=== PATIENT | male | born 1965 | race Asian ===

== ENCOUNTER 2018-09-12 17:55 | Emergency (ER) | payer OTHER ==
[2018-09-12] MEDS ORDERED: DEXAMETHASONE 10 MG/ML VIAL PO STA (20:27)
[2018-09-12] MEDS ORDERED: KETOROLAC 60 MG/2 ML VIAL IM STA (20:27)
--- NOTE | 2018-09-12 20:31 | ED Physician Documentation ---
History of Present Illness - Stated complaint Stated Complaint: R SIDE NECK/FLANK/ ARM PX - Chief complaint Chief Complaint: Ext Problem - History obtained from History obtained from: Patient, Family () - History of Present Illness Timing: How many weeks ago (2) Pain level max: 7 Pain level now: 4 Improved by: tylenol, massage Worsened by: movement - Additonal information Additional information: 53 year old male with R sided neck pain, radiating to the R arm and R flank. Intermittent for 2 weeks. Feels like shooting pain. Worse with turning his neck, especially trying to look over the R shoulder when backing out his car. Has a history of similar problems in the past with his neck per pt and . No recent trauma. No focal numbness or weakness. No difficulty with speech. No headache. Occasionally feels the pain radiated into the right upper ribs as well. Has been taking Tylenol which relieves the pain as well as massaging the trapezius and neck muscles which also relieves the pain. Review of Systems Constitutional: denies: Fever, Chills Ears: denies: Ear pain Nose: denies: Rhinorrhea / runny nose, Congestion Respiratory: denies: Cough GI: denies: Abdominal Pain, Nausea, Vomiting, Diarrhea Skin: denies: Rash Musculoskeletal: denies: Neck pain, Back pain Neurologic: denies: Focal weakness, Numbness, Headache PD PAST MEDICAL HISTORY - Past Medical History Cardiovascular: Hypertension, High cholesterol Endocrine/Autoimmune: Type 2 diabetes - Present Medications Home Medications: Ambulatory Orders Medication Instructions Recorded Confirmed Aspirin [Aspir 81] 81 mg PO DAILY 06/22/15 09/12/18 Losartan Potassium 25 mg PO DAILY 06/22/15 09/12/18 Atorvastatin Calcium 40 mg PO DAILY 09/12/18 09/12/18 Cyclobenzaprine [Flexeril] 10 mg PO TID PRN #20 tablet 09/12/18 Meloxicam [Mobic] 15 mg PO DAILY PRN #20 tablet 09/12/18 Metformin HCl [Metformin ER 500 mg PO DAILY 09/12/18 09/12/18 Osmotic] Sitagliptin Phosphate [Januvia] 50 mg PO DAILY 09/12/18 09/12/18 - Allergies Allergies/Adverse Reactions: Allergies Allergy/AdvReac Type Severity Reaction Status Date / Time No Known Drug Allergies Allergy Verified 09/12/18 18:05 - Social History Does the pt smoke?: No Smoking Status: Never smoker PD ED PE NORMAL - Vitals Vital signs reviewed: Yes - General General: Alert and oriented X 3, No acute distress, Well developed/nourished - HEENT HEENT: Atraumatic, PERRL, Ears normal, Moist mucous membranes, Pharynx benign - Neck Neck: Supple, no meningeal sign, No bony TTP, Other (Paraspinal cervical spasm right sided. 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 Given Toradol and Decadron here. Will place on Mobic and Flexeril for home. We will have him follow-up with his doctor for further care. He is well-appearing, nontoxic. Afebrile. No evidence of cauda equina, epidural abscess. No evidence of stroke. Patient counseled regarding signs and symptoms for which I believe and urgent re-evaluation would be necessary. Patient with good understanding of and agreement to plan and is comfortable going home at this time This document was made in part using voice recognition software. While efforts are made to proofread this document, sound alike and grammatical errors may occur. Departure - Departure Disposition: 01 Home, Self Care Clinical Impression: Cervical radiculopathy Condition: Good Instructions: ED Cervical Radiculopathy Follow-Up: NAE GUO [Primary Care Provider] - Within 1 week Prescriptions: Cyclobenzaprine [Flexeril] 10 mg PO TID PRN #20 tablet PRN Reason: Spasms Meloxicam [Mobic] 15 mg PO DAILY PRN #20 tablet PRN Reason: pain Comments: Do not drive or operate heavy machinery while taking the Flexeril. This should improve over the next few days. Follow-up with your doctor for further care. You may need physical therapy and/or an MRI. NIHSS - Time Time: 08:24 - Level of Consciousness Level of consciousness: (0) Alert, Keenly responsive LOC Questions: (0) Answers both Q's correct LOC Commands: (0) Performs both correctly - Gaze Best Gaze: (0) Normal - Visual Visual: (0) No loss - Facial Palsy Facial Palsy: (0) Normal, symmetrical movement - Motor Arms (both separate) Motor Arm (right): (0) No drift Motor Arm (left): (0) No drift - Motor Legs (both separate) Motor Leg (right): (0) No drift Motor Leg (left): (0) No drift - Limb Ataxia Limb Ataxia: (0) Absent - Sensory Sensory: (0) Normal - Best Language Best Language: (0) No aphasia - Dysarthria Dysarthria: (0) Normal - Extinction and Inattention (formally neg Extinction and inattention: (0) No abnormality - Total Score/Results Total Score/Result: 0
[2018-09-12 20:59] VITALS: BP 128/70
== END 2018-09-12 20:59 | disposition home or self-care (01) ==
LOC: ED 17:55
DX: M54.12 Radiculopathy, cervical region (principal); E11.9 Type 2 diabetes mellitus without complications; I10 Essential (primary) hypertension; E78.00 Pure hypercholesterolemia, unspecified; Z79.82 Long term (current) use of aspirin
CPT/HCPCS: 96372; 99283

== ENCOUNTER 2020-10-17 15:40 | Outpatient (CLI) | payer OTHER ==
[2020-10-17 16:19] VITALS: BP 153/90
--- NOTE | 2020-10-17 16:19 | SLEEP CARE CONSULTATION ---
Information from patient questionnaire entered by Rosalba Boothe. I have reviewed and concur with the information entered by Rosalba Boothe. This document represents the service I personally performed and the decisions made by me, Alesha Hood MD, [facility]. History of Present Illness Service Date and Time: 10/17/2020 1540 Reason for Visit: New patient, Previously diagnosed sleep apnea Chief Complaint: reports: Unrefreshed sleep, Snoring, Other (changed of sleep habits) Date of Onset: more than 6 months Usual bedtime: 10pm Time it takes to fall asleep: 6 hours Snores at night: Yes Observed to quit breathing while asleep: Yes Sleeps alone due to snoring: No Number of times waking at night: 2-3 times Reasons for waking at night: reports: Snoring, Bathroom Toss, Turn, or Twitch while sleeping: Yes Recalls having dreams: Yes Usually gets out of bed at: 5 am Feels refreshed in the morning: Yes (sometimes) Morning headache: Yes (dizzyness) Sleepy or fatigued during the day: Yes Ever fallen asleep while driving: Yes Takes day naps: Yes (if time permits) Dreams during day naps: Yes Prior sleep studies: Yes Year and Where: 2012 - [facility] in [facility] Additional HPI information: I had the pleasure of seeing Mr. Gr along with his today regarding obstructive sleep apnea-hypopnea. As you know, he is a 55 year old gentleman who was diagnosed with the sleep-disordered breathing in [place] 8 years ago. The AHI was 3.9. He was prescribed a CPAP device which he found very uncomfortable and did not use it. He continues to snore loudly and his reports seeing him quit breathing. He is very sleepy during the day. - Parasomnia Symptoms Ever been unable to move upon waking from sleep: Yes Ever felt weak in the knees when startled or emotional: Yes Bothered by creepy, crawly, restless sensations in legs: Yes Problems with memory or concentration: Yes (lately) Subjective Initial [place] Sleepiness Scale score: 24 (in 2020) Past Medical History Past Medical History: reports: Diabetes, Anxiety, Depression, Other (dryness of eyes, twitching of eyes) Social History The patient's occupation is a [employer]. Patient is and lives in [place]. Have you smoked in the past 12 months: No Alcohol use: No Caffeine use: Yes Caffeine amount and frequency: 2 cups of coffee a day Family History Family history of sleep disordered breathing: Yes (dad, mom) Allergies and Home Medications Drug allergies reviewed: Yes Home medication list reviewed: Yes Review of Systems Weight loss over past 5 years: 15 Cardiovascular: reports: high blood pressure Respiratory: reports: other (asthma) Gastrointestinal: reports: difficulty swallowing Urinary: reports: frequency Neurological: denies: headaches, seizure, head trauma, disorientation, speech dysfunction, gait or balance problems, fainting or unconsciousness, other Psychiatric: reports: anxiety, depression Ear/Nose/Throat: reports: nasal congestion, wisdom teeth removed Endocrine: reports: sluggishness, excessive thirst, increased urination Musculoskeletal: reports: neck pain, back pain, muscle pain or cramping (cramping) Immunologic: reports: sneezing Physical Exam Vital signs obtained and entered by: Dr. Hood Blood Pressure: 153/90 Cuff size: regular Heart Rate: 75 O2 Saturation: 98 Height: 5 ft 3 in Weight: 140 lb Body Mass Index: 24.7 BMI Classification: Healthy weight Neck circumference: 15 Nasal exam: positive: erythema Mood/affect: Normal Nostrils: patent to airflow Turbinates: normal Septum: midline Mouth and throat: narrow oropharynx Soft palate: long Hard palate: normal Uvula: normal Uvula visualization: 50% Mallampati Class II Tongue: normal in size Tonsils: small Chin and jaw: normal size and position Neck: normal w/o lymphadenopathy or thyromegaly Impression and Plan IMPRESSION: 1. Obstructive Sleep Apnea-Hypopnea Syndrome, as suggested by history of loud and irregular snoring, observed cessation of breath while asle ep, unrefreshed sleep, cognitive impairment, and daytime hypersomnolence. Narrow oropharynx is a common predisposing factor for obstructive sleep apnea-hypopnea syndrome. I recommend proceeding to polysomnography to confirm the diagnosis and to assess severity. If he has significant sleep disordered breathing, a manual CPAP titration study will also be performed to find the optimal treatment pressure. I informed the patient of what the sleep studies involve and after some discussion, he agreed to proceed. However, because there is long waiting list for in-laboratory polysomnography, a home sleep apnea test (HSAT) will first be ordered. Plan: 1. Schedule a home sleep apnea test (HSAT) 2. Avoid long distance driving or when feeling sleepy. 3. Avoid alcohol, sedative and muscle relaxant around bedtime. 4. Return for a follow up after the test. Visit Type: In Office Time Spent with Patient (minutes): 15 Provider Statement: I spent 100% of the Face to Face Visit with the patient with greater than 50% spent counseling the patient and coordination of care.
== END 2020-10-17 15:41 | disposition home or self-care (01) ==
LOC: SC 15:40
PROVIDERS: ATTEND Internal Medicine Pulmonary Disease
DX: G47.33 Obstructive sleep apnea (adult) (pediatric) (principal)
CPT/HCPCS: 99202; 99212

== ENCOUNTER 2020-12-01 15:56 | Outpatient (CLI) | payer OTHER | END 2020-12-01 15:57 | disposition home or self-care (01) | LOC: SC 15:56 | PROVIDERS: ATTEND Internal Medicine Pulmonary Disease | DX: G47.33 Obstructive sleep apnea (adult) (pediatric) (principal) | CPT/HCPCS: 95806 ==

== ENCOUNTER 2020-12-12 15:01 | Outpatient (CLI) | payer OTHER ==
--- NOTE | 2020-12-13 08:55 | SLEEP CARE CONSULTATION ---
Information from patient questionnaire entered by Franklin Ellis. I have reviewed and concur with the information entered by Franklin Ellis. This document represents the service I personally performed and the decisions made by me, Alesha Hood MD, [facility]. History of Present Illness Service Date and Time: 12/12/2020 1501 Initial [place] Sleepiness Scale score: 24 (in 2020) Current [place] Sleepiness Scale score: 24 Additional HPI information: Mr. Gr returned with his for follow up of the home sleep apnea test (HSAT) he had on 12/01/2020. The test showed moderate obstructive sleep apnea- hypopnea with an AHI of 18.3 and carlos oxygen saturation of 80%. The respiratory events occurred mostly during non-supine sleep, possibly during REM sleep. The patient was informed of these findings. I explained to him the pathophysiol ogy behind obstructive sleep apnea. We then spent quite a bit of time discussing different treatment options. For mild obstructive sleep apnea, surgery and oral appliance are alternatives to nasal CPAP therapy but in moderate or severe cases, nasal CPAP is the most effective and reliable treatment. Weight loss in an obese individual is strongly recommended. After some discussion, he opted to go with the nasal CPAP therapy. I explained to him how CPAP machine works and what to expect when using the machine. He is encouraged to use CPAP every night especially in the first 2 to 3 nights in order to get used to it. He should call his CPAP supplier or me to discuss any mechanical problem that may occur. If he snores or feels like he is not getting enough air from the machine, he should notify me and I will increase the pressure. Sleep Study - Results Type of Sleep Study: Home sleep study Prior sleep studies: Yes Year and Where: 2012 - [facility] in [facility] Allergies and Home Medications Drug allergies reviewed: Yes Home medication list reviewed: Yes Review of Systems Review of systems same as previous: Yes Physical Exam Height: 5 ft 3 in Weight: 140 lb Body Mass Index: 24.7 BMI Classification: Healthy weight Impression and Plan IMPRESSION: 1. Obstructive Sleep Apnea-Hypopnea Syndrome, moderate, associated with moderate hypoxemia. Obviously this is the cause of the patients symptoms of unrefreshed sleep, and excessive daytime sleepiness. As mentioned above, the patient will be started on an autoCPAP set between 5 and 15 cmH2O. Depending on his response and compliance he may be brought back for an overnight CPAP titration study. PLAN: 1. Prescription made for an autoCPAP, heated humidifier, and related supplies. 2. Avoid alcohol consumption near bedtime. 3. Return for follow up after one month of using the CPAP. Visit Type: In Office Time Spent with Patient (minutes): 15 Provider Statement: I spent 100% of the Face to Face Visit with the patient with greater than 50% spent counseling the patient and coordination of care.
== END 2020-12-12 15:02 | disposition home or self-care (01) ==
LOC: SC 15:01
PROVIDERS: ATTEND Internal Medicine Pulmonary Disease
DX: G47.33 Obstructive sleep apnea (adult) (pediatric) (principal)
CPT/HCPCS: 99212

== ENCOUNTER 2022-08-07 07:35 | Day surgery (SDC) | payer OTHER ==
[2022-08-07] MEDS ORDERED: LACTATED RINGERS 1,000 ML IV ONE ×2 (07:39→09:00)
--- NOTE | 2022-08-07 07:42 | ANESTHESIA ---
Pre-Anesthesia VS, & Labs - Diagnosis hx colon polyps - Procedure colonscopy Height: 5 ft 3 in - NPO >8 hours Last Fluid Intake: am prep - Lab Results Lab results reviewed: Yes Home Medications and Allergies Home Medications: Ambulatory Orders Loratadine [Claritin] 10 mg ORAL PRN PRN 08/06/22 Semaglutide [Ozempic] 0.5 ml SQ OAW 08/06/22 Aspirin [Aspir 81] 81 mg PO DAILY 06/22/15 Losartan Potassium 25 mg PO DAILY 06/22/15 Atorvastatin Calcium 40 mg PO DAILY 09/12/18 Metformin HCl [Metformin ER Osmotic] 500 mg PO BID 09/12/18 Loratadine [Claritin] 10 mg ORAL PRN PRN 08/06/22 Semaglutide [Ozempic] 0.5 ml SQ OAW 08/06/22 Allergies/Adverse Reactions: Allergies Allergy/AdvReac Type Severity Reaction Status Date / Time No Known Drug Allergies Allergy Verified 09/12/18 18:05 Anes History & Medical History - Anesthetic History Anesthesia Complications: reports: No previous complications Family history of Anesthesia Complications: Denies Family history of Malignant Hyperthermia: Denies - Medical History Cardiovascular: reports: Hypertension, High cholesterol Pulmonary: reports: Asthma, Sleep apnea, CPAP use Gastrointestinal: reports: Colon polyps Urinary: reports: None Musculoskeletal: reports: None Endocrine/Autoimmune: reports: Type 2 diabetes Skin: reports: None Smoking Status: Never smoker - Surgical History General: reports: Colonoscopy Exam General: Alert, Oriented x3 Dental: WNL Mouth Openin Fingerbreadth Neck Mobility: Normal Mallampati classification: II Thyromental Distance: 4-6 cm Cardiovascular: Regular rate Neurological: Normal speech Mental/Cognitive Status: Alert/Oriented X3, Normal for patient Cognitive Status: Within normal limits Plan Anesthesia Type: Total IV Consent for Procedure(s) Verified and Reviewed: Yes Code Status: Attempt Resuscitation ASA classification: 2-Mild systemic disease Is this case an emergency?: No
[2022-08-07] MEDS ORDERED: PROPOFOL 500 MG/50 ML 500 MG/50 ML VIAL ONE (07:43)
[2022-08-07] MEDS ORDERED: MIDAZOLAM 2 MG/2 ML VIAL ONE (07:48)
[2022-08-07 09:21] VITALS: BP 99/62
--- NOTE | 2022-08-07 13:31 | ANESTHESIA POST OP EVALUATION ---
Anesthesia Post Eval - Post Anesthesia Eval Vitals: Last Vital Signs Temp 36.1 C L 08/07/22 09:17 Pulse 73 08/07/22 09:17 Resp 14 08/07/22 09:17 BP 99/62 08/07/22 09:17 Pulse Ox 99 08/07/22 09:17 O2 Flow Rate 0 08/07/22 07:55 CV Function Including HR & BP: Stable Pain Control: Satisfactory Nausea & Vomiting: Negative Mental Status: Baseline Respiratory Status: Airway Patent Hydration Status: Satisfactory Anesthesia Complications: None
== END 2022-08-07 07:36 | disposition home or self-care (01) ==
LOC: SDS 07:35
PROVIDERS: ATTEND Surgery
PROC: 0DBK8ZX Excision of Ascending Colon, Via Natural or Artificial Opening Endoscopic, Diagnostic (ICD-10-PCS; principal; 2022-08-07 08:30)
DX: D12.2 Benign neoplasm of ascending colon (principal); I10 Essential (primary) hypertension; G47.33 Obstructive sleep apnea (adult) (pediatric); E11.9 Type 2 diabetes mellitus without complications; Z79.84 Long term (current) use of oral hypoglycemic drugs
CPT/HCPCS: 45380; J7120

== ENCOUNTER 2024-02-26 07:41 | Outpatient (CLI) | payer OTHER | END 2024-02-26 07:42 | disposition home or self-care (01) | LOC: DI 07:41 | PROVIDERS: ATTEND Nurse Practitioner Family | DX: Z02.9 Encounter for administrative examinations, unspecified (principal); I34.0 Nonrheumatic mitral (valve) insufficiency; R07.2 Precordial pain; E11.9 Type 2 diabetes mellitus without complications | CPT/HCPCS: 93307 ==

== ENCOUNTER 2024-04-28 14:27 | Outpatient (CLI) | payer OTHER | END 2024-04-28 14:28 | disposition home or self-care (01) | LOC: CAM 14:27 | PROVIDERS: ATTEND Internal Medicine | DX: M54.50 Low back pain, unspecified (principal); G89.29 Other chronic pain | CPT/HCPCS: 97810; 97811 ==

== ENCOUNTER 2024-05-12 14:45 | Outpatient (CLI) | payer OTHER | END 2024-05-12 14:46 | disposition home or self-care (01) | LOC: CAM 14:45 | PROVIDERS: ATTEND Internal Medicine | DX: M54.50 Low back pain, unspecified (principal); G89.29 Other chronic pain | CPT/HCPCS: 97810; 97811 ==